=== PATIENT | female | born 1960 | race American Indian/Alaskan Native ===

== ENCOUNTER 2017-02-13 01:01 | Emergency (ER) | payer MEDICAID ==
[2017-02-13 01:57] LABS: Hematocrit 40.1 % (30.3-42.9); Hemoglobin 13.3 gm/dl (10.1-14.3); Mean Corpuscular HGB Conc 33 % (30-34); Mean Corpuscular Hemoglobin 30 pg (28-32); Mean Corpuscular Volume 91 fl (79-97); Platelet Count 142 K/mm3 (140-440); Red Blood Count 4.39 M/mm3 (3.65-5.03)
[2017-02-13 02:13] LABS: Anion Gap 14 mmol/L; BUN/Creatinine Ratio 11.25; Blood Urea Nitrogen 9 mg/dL (7-17); Calcium 9.1 mg/dL (8.4-10.2); Carbon Dioxide 26 mmol/L (22-30); Glucose 122 mg/dL (65-100); Potassium 4.1 mmol/L (3.6-5.0); Sodium 135 mmol/L (137-145)
[2017-02-13 02:43] LABS: Anisocytosis RARE; Basophils % (Manual) 0 % (0.0-1.8); Blastocytes % (Manual) 0 %; Diff Status Complete
[2017-02-13] MEDS ORDERED: MOTRIN ONE (02:51)
[2017-02-13] MEDS: MOTRIN PO ONE (03:18)
[2017-02-13 04:04] LABS: Alanine Aminotransferase 58 units/L (7-56); Albumin 4.1 g/dL (3.9-5); Albumin/Globulin Ratio 1.1 %; Alkaline Phosphatase 167 units/L (35-129); Amylase 112 units/L (27-131); Bilirubin,Total 0.2 mg/dL (0.1-1.2); Lipase 41 units/L (13-60); Total Protein 7.8 g/dL (6.3-8.2)
[2017-02-13 04:06] LABS: Bilirubin,Direct < 0.2 mg/dL (0-0.2)
[2017-02-13 05:09] LABS: Bilirubin,Urine NEG (Negative); Blood,Urine SM (Negative); Ketones,Urine NEG (Negative); Leukocyte Esterase,Urine TR (Negative); Mucus,Urine FEW /HPF; Nitrite,Urine NEG (Negative); Protein,Urine <15 mg/dL mg/dL (Negative); Urobilinogen,Urine < 2.0 mg/dL (<2.0)
--- NOTE | 2017-02-13 07:11 | Emergency Department Report ---
Chief Complaint: Pain General Stated Complaint: BODY ACHE/FEVER Time Seen by Provider: 02/13/17 04:12 - HPI History of Present Illness: 56-year-old female past medical history breast cancer since with complaint of slightly productive cough, fever, chills, body aches for several days. Patient is nonsmoker, denies any chest pain no palpitations, slight shortness of breath due to cough. - Exam Vital Signs: Vital Signs 02/13/17 02/13/17 01:10 06:26 Temperature 101.9 F H 98.3 F Pulse Rate 93 H 77 Respiratory 16 18 Rate Blood Pressure 139/75 129/76 [Right] O2 Sat by Pulse 99 98 Oximetry Physical Exam: Heart S1-S2 lungs clear to auscultation, patient is warm to palpation MSE screening note: Focused history and physical exam performed. Due to findings the following was ordered: Screening Assessment/Plan/Differential Dx: Fever, body aches, viral syndrome? 1- This initial assessment/diagnostic orders/clinical plan/ treatment(s) is/are subject to change based on pt's health status, clinical progression and re- assessment by fellow clinical providers in the ED. Further treatment and workup at subsequent clinical provers discretion. Patient/guardians urged not to elope from ED as their condition may be serious if not clinically assessed and managed. 2- 3- 4- ED Medical Decision Making - Lab Data Result diagrams: 02/13/17 01:37 02/13/17 01:37 ED Disposition for MSE Condition: Stable Referrals: PRIMARY CARE, [Primary Care Provider] - 3-5 Days
--- NOTE | 2017-02-13 07:24 | XRay Report ---
ROUTINE CHEST, TWO VIEWS: HISTORY: Cough, breast cancer. A right [id number]-[id number] has been inserted since 10/08/14. Surgical clips overlie the superior left breast. Heart size and pulmonary vessels are normal. No evidence for infiltrate, pleural effusion or pneumothorax. IMPRESSION: No acute cardiopulmonary process appreciated.
--- NOTE | 2017-02-13 07:38 | Emergency Department Report ---
HPI - General Chief Complaint: Pain General Time Seen by Provider: 02/13/17 04:12 - HPI HPI: Chief complaint: Body aches and coughing HPI: Patient complains of 2 day history of productive cough with yellow sputum, fever, wheezing. Patient states she did not take her flu vaccine. Patient states her highest it was 102.9. Patient states she had 2 episodes of vomiting. Patient has history of breast cancer status post chemotherapy. Last chemotherapy was 1 year ago. Patient is being followed closely for possible recurrence. Patient with a history of asthma and has been using her nebulizer treatment for occasional wheezing. Patient is currently not wheezing Mode of arrival: [private car] Source: [Patient] Began:2 days Duration: 2 days Context: See above Quality: Body aches Severity: 4 out of 10 Improved with: Motrin improves fever and aching Worsened with: Nothing Associated signs and symptoms: Vomiting secondary to coughing ED Past Medical Hx - Past Medical History Previous Medical History?: Yes Hx Hypertension: Yes Hx Asthma: Yes Additional medical history: "breast cancer" - Surgical History Past Surgical History?: Yes Additional Surgical History: partial mastectomy, c-sections, total mastectomy left. - Social History Smoking Status: Never Smoker Substance Use Type: None - Medications Home Medications: Home Medications Medication Instructions Recorded Confirmed Last Taken Type Atenolol [Tenormin] 50 mg PO DAILY 30 Days 10/09/14 08/01/15 07/31/15 Rx 50 mg amLODIPine [Norvasc] 10 mg PO DAILY #30 tab 10/09/14 08/01/15 07/31/15 Rx 10 mg HYDROcodone/APAP 5-325 [[place] 1 each PO Q6HR PRN #12 tablet 12/29/14 08/01/15 Rx 5-325 mg TAB] HYDROcodone/APAP 7.5-325 [[place] 1 each PO Q8HR PRN #15 tablet 07/03/15 08/01/15 Unknown Rx 7.5/325] Dexamethasone [Decadron] 4 mg PO QWEEK 08/01/15 08/01/15 07/11/15 History Ibuprofen [Motrin 600 MG tab] 600 mg PO BID 08/01/15 08/01/15 07/29/15 History Omeprazole Magnesium [PriLOSEC Otc] 20.6 mg PO DAILY 08/01/15 08/01/15 07/31/15 History traMADol [Ultram 50 MG tab] 50 mg PO Q6HR PRN 08/01/15 08/01/15 07/29/15 History Azithromycin [Zithromax TAB] 500 mg PO QDAY #3 tablet 02/13/17 Unknown Rx Benzonatate [Tessalon Perles] 100 mg PO Q8HR #14 capsule 02/13/17 Unknown Rx ED Review of Systems ROS: Stated complaint: BODY ACHE/FEVER Other details as noted in HPI ROS Constitutional: fever ENT: No uri symptoms Cardiovascular: No chest pain Respiratory: No sob GI: No diarrhea : No dysuria frequency or urgency, Skin: No rash Neuro: No focal weakness or numbness Psych: No depression Hussein/lymph: No edema Physical Exam - Physical Exam Vital Signs: Vital Signs 02/13/17 02/13/17 01:10 06:26 Temperature 101.9 F H 98.3 F Pulse Rate 93 H 77 Respiratory 16 18 Rate Blood Pressure 139/75 129/76 [Right] O2 Sat by Pulse 99 98 Oximetry Physical Exam: GENERAL: The patient is well-developed well-nourished . HEENT: Normocephalic. Atraumatic. Extraocular motions are intact. Patient has moist mucous membranes. TMs negative, pharynx slightly erythematous without swelling or exudate. NECK: Supple. No meningitic signs are noted. There is no adenopathy noted. CHEST/LUNGS: Clear to auscultation. There is no respiratory distress noted. HEART/CARDIOVASCULAR: Regular. There is no tachycardia. There is no gallop rub or murmur. ABDOMEN: Abdomen is soft, nontender. Patient has normal bowel sounds. There is no abdominal distention. SKIN: There is no rash. There is no edema. There is no diaphoresis. NEURO: The patient is awake, alert, and oriented. The patient is cooperative. The patient has no focal neurologic deficits. The patient has normal speech. MUSCULOSKELETAL: There is no tenderness or deformity. There is no limitation range of motion. There is no evidence of acute injury. ED Course Vital Signs 02/13/17 02/13/17 01:10 06:26 Temperature 101.9 F H 98.3 F Pulse Rate 93 H 77 Respiratory 16 18 Rate Blood Pressure 139/75 129/76 [Right] O2 Sat by Pulse 99 98 Oximetry - Reevaluation(s) Reevaluation #1: 02/13/17 Patient given Motrin prior to my evaluation with improvement of her fever. ED Medical Decision Making - Lab Data Result diagrams: 02/13/17 01:37 02/13/17 01:37 Laboratory Tests 02/13/17 01:37 AST 90 H ALT 58 H Alkaline Phosphatase 167 H - Radiology Data interpreted by me: Chest x-ray shows no acute process. Critical care attestation.: If time is entered above; I have spent that time in minutes in the direct care of this critically ill patient, excluding procedure time. ED Disposition Clinical Impression: Acute bronchitis Qualifiers: Bronchitis organism: unspecified organism Qualified Code(s): J20.9 - Acute bronchitis, unspecified Disposition: DISCHARGED TO HOME OR SELFCARE Is pt being admited?: No Does the pt Need Aspirin: No Condition: Stable Instructions: Acute Bronchitis (ED) Prescriptions: Azithromycin [Zithromax TAB] 500 mg PO QDAY #3 tablet Benzonatate [Tessalon Perles] 100 mg PO Q8HR #14 capsule Referrals: PRIMARY CARE, [Primary Care Provider] - 3-5 Days CELI BAZAN MD [Staff Physician] - 3-5 Days RITU BE MD [Staff Physician] - 3-5 Days Time of Disposition: 07:37
[2017-02-13 07:49] VITALS: BP 108/61
== END 2017-02-13 07:50 | disposition home or self-care (01) ==
LOC: ED 01:01
DX: J20.9 Acute bronchitis, unspecified (principal); I10 Essential (primary) hypertension; J45.909 Unspecified asthma, uncomplicated
CPT/HCPCS: 36415; 71020; 80048; 80074; 81001; 82150; 83690; 85007; 85025; 87086; 87116; 87400; 87430; 99284

== ENCOUNTER 2017-09-09 07:31 | Outpatient (CLI) | payer MEDICAID ==
--- NOTE | 2017-09-09 09:24 | Mammography Report ---
Right mammogram: Right breast cancer and left mastectomy for cancer. Routine views of the right breast are compared to comparable study in January 2015. There is scar or traction from prior lumpectomy. The findings otherwise appear generally unremarkable and unchanged from prior exam. CAD used. Impression: Stable right breast pattern. No evidence of recurrent malignancy. Recommendation: Annual mammogram followup. BI-RADS CATEGORY: 2 = Benign ACR BI-RADS MAMMOGRAPHIC CODES: 0 = Needs additional imaging evaluation; 1 = Negative; 2 = Benign; 3 = Probably benign; 4 = Suspicious; 5 = Malignant; 6 = Known biopsy-proven malignancy COMMENT: 1. Dense breast tissue, i.e., adenosis, fibrocystic changes, etc., may obscure an underlying neoplasm. 2. Approximately 10% of cancers are not detected with mammography. 3. A negative mammography report should not delay biopsy if a clinically suspicious mass is present.
== END 2017-09-09 07:32 | disposition home or self-care (01) ==
LOC: MAMMO 07:31
PROVIDERS: ATTEND Internal Medicine
DX: Z12.31 Encounter for screening mammogram for malignant neoplasm of breast (principal); C50.912 Malignant neoplasm of unspecified site of left female breast; Z90.12 Acquired absence of left breast and nipple
CPT/HCPCS: G0202-52

== ENCOUNTER 2017-11-14 16:27 | Emergency (ER) | payer MEDICARE, MEDICAID ==
--- NOTE | 2017-11-14 19:04 | Emergency Department Report ---
Chief Complaint: Upper Respiratory Infection Stated Complaint: SOB Time Seen by Provider: 11/14/17 18:49 - HPI History of Present Illness: Patient is a 57-year-old [place] female with past medical history of breast cancer who is undergone chemotherapy and radiation and only sees her oncologist every 3 months, this presenting with cough cold congestion symptoms for the last 3-4 days. Patient states that she does have asthma she has had a wheeze. Patient has had a cough productive of yellow sputum. Patient does not think she 's had a fever. Patient states she is been coughing so much that she has vomited several times. Patient is denying any body aches back pain diarrhea or sore throat at this time. - ROS Review of Systems: Review of systems is negative except those IN HPI - Exam Vital Signs: Vital Signs 11/14/17 16:37 Temperature 98.6 F Pulse Rate 104 H Respiratory 18 Rate Blood Pressure 144/76 O2 Sat by Pulse 100 Oximetry Physical Exam: Focused physical exam shows a patient does have mild wheezing in all quadrants patient has normal heart tones abdomen is soft nontender extremities are normal patient is a and O 3 MSE screening note: Focused history and physical exam performed. Due to findings the following was ordered: Patient will be moved to our treatment area for albuterol Atrovent treatments as well as steroids IV fluids and will check basic labs ED Disposition for MSE Condition: Stable Referrals: EMELY PLEITEZ MD [Primary Care Provider] - 3-5 Days
[2017-11-14] MEDS ORDERED: DUONEB *Not for PRN Use IH ONE (19:08)
[2017-11-14] MEDS ORDERED: NACL 0.9% 1000 ML 1,000 ML IV ONE (19:08)
[2017-11-14] MEDS ORDERED: PROVENTIL IH ONE (19:08)
[2017-11-14 19:45] LABS: BUN/Creatinine Ratio 10; Basophils % (Auto) 0.4 % (0.0-1.8); Blood Urea Nitrogen 9 mg/dL (7-17); Calcium 9.1 mg/dL (8.4-10.2); Eosinophils # (Auto) 0.2 K/mm3 (0.0-0.4); Eosinophils % (Auto) 2.7 % (0.0-4.3); Hemoglobin 12.6 gm/dl (10.1-14.3); Hemolysis Index 1; Lymphocytes # (Auto) 1.6 K/mm3 (1.2-5.4); Lymphocytes % (Auto) 18.3 % (13.4-35.0); Mean Corpuscular HGB Conc 32 % (30-34); Mean Corpuscular Hemoglobin 30 pg (28-32); Mean Corpuscular Volume 91 fl (79-97); Monocytes % (Auto) 11.3 % (0.0-7.3); Platelet Count 190 K/mm3 (140-440); Red Blood Count 4.27 M/mm3 (3.65-5.03); Red Cell Distribution Width 13.9 % (13.2-15.2)
--- NOTE | 2017-11-14 19:46 | XRay Report ---
FINAL REPORT EXAM: XR CHEST 1V AP HISTORY: [facility] Respiratory Infection TECHNIQUE: upright single view chest PRIORS: None. FINDINGS: Cardiac and mediastinal contours are unremarkable. No focal pulmonary infiltrate is identified. No pleural fluid collection seen. Pulmonary vasculature is unremarkable. There is right-sided chest port with catheter tip at the SVC. Surgical clips are noted at the left hilum IMPRESSION: Chest port No acute abnormality identified in the chest
--- NOTE | 2017-11-14 21:12 | Emergency Department Report ---
- General Chief Complaint: Upper Respiratory Infection Stated Complaint: SOB Time Seen by Provider: 11/14/17 18:49 Source: patient Mode of arrival: Ambulatory Limitations: No Limitations - History of Present Illness Initial Comments: This is a 57-year-old female nontoxic, well nourished in appearance, no acute signs of distress presents to the ED with c/o of nasal congestion, productive cough 3-4 days. Patient has been screened by Dr. Arambula. See Dr. Arambula MSE notes for HPI. Dr. Leos obtained labs. As per patient, no changes in HPI. Patient denies any recent travels, long car rides, recent hospital stays. Patient denies hemoptysis, calf pain, calf tenderness, chest pain, shortness of breath, difficulty breathing, headache, stiff neck, numbness, tingling, abdominal pain, nausea or vomiting. MD Complaint: cough, rhinorrhea, nasal congestion -: days(s) (3) Severity: mild Consistency: constant Improves With: nothing Worsens With: nothing Associated Symptoms: rhinorrhea, nasal congestion, cough. denies: fever, chills , myalgias, diaphoresis, headache, sore throat, stiff neck, chest pain, shortness of breath, abdominal pain, nausea, vomiting, diarrhea, dysuria, rash, confusion, right sweats, weight loss, epistaxis, hoarseness, ear pain Treatments Prior to Arrival: none - Related Data Home Medications Medication Instructions Recorded Confirmed Last Taken Dexamethasone [Decadron] 4 mg PO QWEEK 08/01/15 08/01/15 07/11/15 Ibuprofen [Motrin 600 MG tab] 600 mg PO BID 08/01/15 08/01/15 07/29/15 Omeprazole Magnesium [PriLOSEC Otc] 20.6 mg PO DAILY 08/01/15 08/01/15 07/31/15 traMADol [Ultram 50 MG tab] 50 mg PO Q6HR PRN 08/01/15 08/01/15 07/29/15 Previous Rx's Medication Instructions Recorded Last Taken Type Atenolol [Tenormin] 50 mg PO DAILY 30 Days tab 10/09/14 07/31/15 Rx 50 mg amLODIPine [Norvasc] 10 mg PO DAILY #30 tab 10/09/14 07/31/15 Rx 10 mg HYDROcodone/APAP 5-325 [[place] 1 each PO Q6HR PRN #12 tablet 12/29/14 07/25/15 Rx 5-325 mg TAB] HYDROcodone/APAP 7.5-325 [[place] 1 each PO Q8HR PRN #15 tablet 07/03/15 Unknown Rx 7.5/325] Azithromycin [Zithromax TAB] 500 mg PO QDAY #3 tablet 02/13/17 Unknown Rx Benzonatate [Tessalon Perles] 100 mg PO Q8HR #14 capsule 02/13/17 Unknown Rx ALBUTEROL Inhaler [ProAir HFA 2 puff IH QID PRN #1 inhalation 11/14/17 Unknown Rx Inhaler] Benzonatate [Tessalon Perle] 100 mg PO Q8H #30 capsule 11/14/17 Unknown Rx Levofloxacin [Levaquin TAB] 750 mg PO QDAY #5 tablet 11/14/17 Unknown Rx predniSONE [Deltasone] 40 mg PO QDAY #5 tab 11/14/17 Unknown Rx Allergies Allergy/AdvReac Type Severity Reaction Status Date / Time No Known Allergies Allergy Verified 10/09/14 00:39 ED Review of Systems ROS: Stated complaint: SOB Other details as noted in HPI Constitutional: denies: chills, fever Eyes: denies: eye pain, eye discharge, vision change ENT: denies: ear pain, throat pain Respiratory: cough. denies: shortness of breath, wheezing Cardiovascular: denies: chest pain, palpitations Endocrine: no symptoms reported Gastrointestinal: denies: abdominal pain, nausea, diarrhea Genitourinary: denies: urgency, dysuria, discharge Musculoskeletal: denies: back pain, joint swelling, arthralgia Skin: denies: rash, lesions Neurological: denies: headache, weakness, paresthesias Psychiatric: denies: anxiety, depression Hematological/Lymphatic: denies: easy bleeding, easy bruising ED Past Medical Hx - Past Medical History Hx Hypertension: Yes Hx Asthma: Yes Additional medical history: "breast cancer" - Surgical History Additional Surgical History: partial mastectomy, c-sections, total mastectomy left. - Social History Smoking Status: Never Smoker Substance Use Type: None - Medications Home Medications: Home Medications Medication Instructions Recorded Confirmed Last Taken Type Atenolol [Tenormin] 50 mg PO DAILY 30 Days tab 10/09/14 08/01/15 07/31/15 Rx 50 mg amLODIPine [Norvasc] 10 mg PO DAILY #30 tab 10/09/14 08/01/15 07/31/15 Rx 10 mg HYDROcodone/APAP 5-325 [[place] 1 each PO Q6HR PRN #12 tablet 12/29/14 08/01/15 Rx 5-325 mg TAB] HYDROcodone/APAP 7.5-325 [[place] 1 each PO Q8HR PRN #15 tablet 07/03/15 08/01/15 Unknown Rx 7.5/325] Dexamethasone [Decadron] 4 mg PO QWEEK 08/01/15 08/01/15 07/11/15 History Ibuprofen [Motrin 600 MG tab] 600 mg PO BID 08/01/15 08/01/15 07/29/15 History Omeprazole Magnesium [PriLOSEC Otc] 20.6 mg PO DAILY 08/01/15 08/01/15 07/31/15 History traMADol [Ultram 50 MG tab] 50 mg PO Q6HR PRN 08/01/15 08/01/15 07/29/15 History Azithromycin [Zithromax TAB] 500 mg PO QDAY #3 tablet 02/13/17 Unknown Rx Benzonatate [Tessalon Perles] 100 mg PO Q8HR #14 capsule 02/13/17 Unknown Rx ALBUTEROL Inhaler [ProAir HFA 2 puff IH QID PRN #1 inhalation 11/14/17 Unknown Rx Inhaler] Benzonatate [Tessalon Perle] 100 mg PO Q8H #30 capsule 11/14/17 Unknown Rx Levofloxacin [Levaquin TAB] 750 mg PO QDAY #5 tablet 11/14/17 Unknown Rx predniSONE [Deltasone] 40 mg PO QDAY #5 tab 11/14/17 Unknown Rx ED Physical Exam - General Limitations: No Limitations General appearance: alert, in no apparent distress - Head Head exam: Present: atraumatic, normocephalic, normal inspection - Eye Eye exam: Present: normal appearance, PERRL, EOMI. Absent: scleral icterus, conjunctival injection, nystagmus, periorbital swelling, periorbital tenderness Pupils: Present: normal accommodation - ENT ENT exam: Present: normal exam, normal orophraynx, mucous membranes moist, TM's normal bilaterally, normal external ear exam - Neck Neck exam: Present: normal inspection, full ROM. Absent: tenderness, meningismus, lymphadenopathy, thyromegaly - Respiratory Respiratory exam: Present: normal lung sounds bilaterally. Absent: respiratory distress, wheezes, rales, rhonchi, stridor, chest wall tenderness, accessory muscle use, decreased breath sounds, prolonged expiratory - Cardiovascular Cardiovascular Exam: Present: regular rate, normal rhythm, normal heart sounds. Absent: irregular rhythm, systolic murmur, diastolic murmur, rubs, gallop - GI/Abdominal GI/Abdominal exam: Present: soft, normal bowel sounds. Absent: distended, tenderness, guarding, rebound, rigid, diminished bowel sounds - Rectal Rectal exam: Present: deferred - Extremities Exam Extremities exam: Present: normal inspection, full ROM, normal capillary refill. Absent: tenderness, pedal edema, joint swelling, calf tenderness - Back Exam Back exam: Present: normal inspection, full ROM. Absent: tenderness, CVA tenderness (R), CVA tenderness (L), muscle spasm, paraspinal tenderness, vertebral tenderness, rash noted - Neurological Exam Neurological exam: Present: alert, oriented X3, CN II-XII intact, normal gait, reflexes normal - Psychiatric Psychiatric exam: Present: normal affect, normal mood - Skin Skin exam: Present: warm, dry, intact, normal color. Absent: rash ED Course Vital Signs 11/14/17 16:37 Temperature 98.6 F Pulse Rate 104 H Respiratory 18 Rate Blood Pressure 144/76 O2 Sat by Pulse 100 Oximetry - Reevaluation(s) Reevaluation #1: 11/14/17 21:10 Patient is speaking in full sentences with no signs of distress noted. Reevaluation #2: 11/14/17 21:10 patient stated she feels much better after medical treatment and ED included wheezing and other symptoms subsided. - Consultations Consultation #1: 11/14/17 21:11 Patient has been consulted with Dr. Arambula about patient history, physical exam , and labs and examined and screened and agrees distress plan for care. ED Medical Decision Making - Lab Data Result diagrams: 11/14/17 19:15 11/14/17 19:15 - Medical Decision Making This is a 57-yaer-old female that presents with upper resp infection. Patient is stable and was examined by me and Dr. Arambula. Patient is screened by Dr. Arambula. See HPI MSE Dr. Leos noted. As per patient, no physcial changes or HPI changes. Chest x-ray and strep within normal limits and compared by radiologist. Patient notified of x-ray results. Patient received DuoNeb, 1 L normal saline, and Solu-Medrol with patient's symptoms had improved and has subsided. Patient denies history of PE or DVt. Wells criteria 0 points: unlikely PE. Patient was instructed to return in 48 hours to the emergency room for reevaulation of the medical treatment. Due to patient history, patient received Levo, albuterol, tessoln perrls, and prednisone at d.c. Patient was also instructed to Follow-up with a primary care doctor in 24 hours or if symptoms worsen and continue return to emergency room as soon as possible. At time time of discharge, the patient does not seem toxic or ill in appearance. No acute signs of distress noted. Patient agrees to discharge treatment plan of care. No further questions noted by the patient. Critical care attestation.: If time is entered above; I have spent that time in minutes in the direct care of this critically ill patient, excluding procedure time. ED Disposition Clinical Impression: Upper respiratory infection Qualifiers: URI type: unspecified URI Qualified Code(s): J06.9 - Acute upper respiratory infection, unspecified Asthma exacerbation Qualifiers: Asthma severity: mild Asthma persistence: unspecified Qualified Code(s): J45.901 - Unspecified asthma with (acute) exacerbation Disposition: DC-01 TO HOME OR SELFCARE Is pt being admited?: No Does the pt Need Aspirin: No Condition: Stable Instructions: Asthma (ED), Upper Respiratory Infection (ED) Additional Instructions: Follow-up with a primary care doctor in 24 hours or if symptoms worsen and continue return to emergency room as soon as possible. Return to the emergency room in 48 hours for reevaluation. Prescriptions: ALBUTEROL Inhaler [ProAir HFA Inhaler] 2 puff IH QID PRN #1 inhalation PRN Reason: Shortness Of Breath Benzonatate [Tessalon Perle] 100 mg PO Q8H #30 capsule Levofloxacin [Levaquin TAB] 750 mg PO QDAY #5 tablet predniSONE [Deltasone] 40 mg PO QDAY #5 tab Referrals: EMELY PLEITEZ MD [Primary Care Provider] - 3-5 Days CHRISS CORREA MD [Staff Physician] - 3-5 Days [facility] [Outside] - 3-5 Days [facility] [Outside] - 3-5 Days Forms: Work/School Release Form(ED)
[2017-11-14] MEDS ORDERED: TESSALON PERLES PO ONE (21:14)
[2017-11-14 21:31] VITALS: BP 151/82
== END 2017-11-14 21:30 | disposition home or self-care (01) ==
LOC: ED 16:27
DX: J45.901 Unspecified asthma with (acute) exacerbation (principal); J06.9 Acute upper respiratory infection, unspecified; I10 Essential (primary) hypertension
CPT/HCPCS: 36415; 71010; 80048; 85025; 94640; 96374; 99284; J2930; J7030

== ENCOUNTER 2017-12-26 13:51 | Emergency (ER) | payer MEDICAID ==
[2017-12-26 14:38] VITALS: BP 126/70
== END 2017-12-26 14:45 | disposition other institution (70) ==
LOC: ED 13:51
DX: Z53.21 Procedure and treatment not carried out due to patient leaving prior to being seen by health care provider (principal)

== ENCOUNTER 2018-01-30 15:31 | Outpatient (CLI) | payer MEDICAID ==
[2018-01-30 16:13] LABS: Blood Urea Nitrogen 9 mg/dL (7-17)
== END 2018-01-30 15:32 | disposition home or self-care (01) ==
LOC: MRI 15:31
PROVIDERS: ATTEND Internal Medicine Hematology & Oncology
DX: M54.6 Pain in thoracic spine (principal); C50.412 Malignant neoplasm of upper-outer quadrant of left female breast; I10 Essential (primary) hypertension
CPT/HCPCS: 36415; 82565; 84520

== ENCOUNTER 2018-02-09 19:11 | Emergency (ER) | payer MEDICAID, MEDICARE ==
[2018-02-09 19:33] VITALS: BP 119/61
--- NOTE | 2018-02-09 20:20 | Emergency Department Report ---
ED Rash HPI - HPI Chief Complaint: Skin Rash Stated Complaint: RASH ON CHEST,BACK Time Seen by Provider: 02/09/18 20:13 Duration: 3 Days Location: Chest, Back Suspected Cause: Other Rash Symptoms: Yes Itching, No Facial Swelling, No Tongue/Oral Swelling, No Breathing Difficulties, No Choking Sensation, No Wheezing/Dyspnea, No Peeling, No Blistering, No Fever, No Lightheaded, No Malaise, No Myalgias Severity: moderate ED Review of Systems ROS: Stated complaint: RASH ON CHEST,BACK Other details as noted in HPI Constitutional: denies: chills, fever Eyes: denies: eye pain, eye discharge, vision change ENT: denies: ear pain, throat pain Respiratory: denies: cough, shortness of breath, wheezing Cardiovascular: denies: chest pain, palpitations Endocrine: no symptoms reported Gastrointestinal: denies: abdominal pain, nausea, diarrhea Genitourinary: denies: urgency, dysuria, discharge Musculoskeletal: denies: back pain, joint swelling, arthralgia Skin: rash, pruritus Neurological: denies: headache, weakness, paresthesias Psychiatric: denies: anxiety, depression Hematological/Lymphatic: denies: easy bleeding, easy bruising ED Past Medical Hx - Past Medical History Hx Hypertension: Yes Hx of Cancer: Yes (breast) Hx Asthma: Yes Additional medical history: "breast cancer" - Surgical History Additional Surgical History: partial mastectomy, c-sections, total mastectomy left. - Social History Smoking Status: Never Smoker Substance Use Type: Alcohol, Non Opiate Pain, Prescribed - Medications Home Medications: Home Medications Medication Instructions Recorded Confirmed Last Taken Type Atenolol [Tenormin] 50 mg PO DAILY 30 Days tab 10/09/14 08/01/15 07/31/15 Rx 50 mg amLODIPine [Norvasc] 10 mg PO DAILY #30 tab 10/09/14 08/01/15 07/31/15 Rx 10 mg HYDROcodone/APAP 5-325 [[place] 1 each PO Q6HR PRN #12 tablet 12/29/14 08/01/15 Rx 5-325 mg TAB] HYDROcodone/APAP 7.5-325 [[place] 1 each PO Q8HR PRN #15 tablet 07/03/15 08/01/15 Unknown Rx 7.5/325] Dexamethasone [Decadron] 4 mg PO QWEEK 08/01/15 08/01/15 07/11/15 History Ibuprofen [Motrin 600 MG tab] 600 mg PO BID 08/01/15 08/01/15 07/29/15 History Omeprazole Magnesium [PriLOSEC Otc] 20.6 mg PO DAILY 08/01/15 08/01/15 07/31/15 History traMADol [Ultram 50 MG tab] 50 mg PO Q6HR PRN 08/01/15 08/01/15 07/29/15 History Azithromycin [Zithromax TAB] 500 mg PO QDAY #3 tablet 02/13/17 Unknown Rx Benzonatate [Tessalon Perles] 100 mg PO Q8HR #14 capsule 02/13/17 Unknown Rx ALBUTEROL Inhaler [ProAir HFA 2 puff IH QID PRN #1 inhalation 11/14/17 Unknown Rx Inhaler] Benzonatate [Tessalon Perle] 100 mg PO Q8H #30 capsule 11/14/17 Unknown Rx Levofloxacin [Levaquin TAB] 750 mg PO QDAY #5 tablet 11/14/17 Unknown Rx predniSONE [Deltasone] 40 mg PO QDAY #5 tab 11/14/17 Unknown Rx Metoclopramide [Reglan] 10 mg PO TID PRN #30 tab 02/09/18 Unknown Rx Triamcinolone 0.1% [Kenalog 0.1% 1 applic TP TID #1 tube 02/09/18 Unknown Rx OINT] diphenhydrAMINE [Benadryl CAP] 25 mg PO Q6HR PRN #30 capsule 02/09/18 Unknown Rx predniSONE [Deltasone] 40 mg PO QDAY #10 tab 02/09/18 Unknown Rx Rash Exam - Exam General: Vital signs noted. No distress. Alert and acting appropriately. HEENT: No Periorbital Edema, No Conjuctival Injection, No Chemosis, No Perioral Edema, No Tongue Edema, No Uvular Edema, No Compromised Airway, No Drooling Lungs: Yes Good Air Exchange, No Wheezes, No Ronchi, No Stridor, No Cough, No Labored Respirations, No Retractions, No Use of Accessory Muscles, No Other Abnormal Lung Sounds Heart: Yes Regular, No Murmur Skin: Yes Urticarial Rash, Yes Maculopapular Rash, Yes Erythema, No Morbilliform rash, No Bulla(e), No Excoriations, No Weeping, No Tenderness, No Edema, No Encrustations, No Other Other: Positive: Abdomen Normal, Neurologic Normal, Musculoskeletal Normal ED Course Vital Signs 02/09/18 19:29 Temperature 98.6 F Pulse Rate 74 Respiratory 18 Rate Blood Pressure 119/61 [Left] O2 Sat by Pulse 98 Oximetry ED Medical Decision Making - Medical Decision Making pt presents for contact dermatitis rash to back and chest wall macropapular erythema raised smooth pruritis plan, benadry, prednisone, triamcinolone oint follow up with pcp in 2-3 days pt verbalized agreement and understanding of same. Critical care attestation.: If time is entered above; I have spent that time in minutes in the direct care of this critically ill patient, excluding procedure time. ED Disposition Clinical Impression: Contact dermatitis Qualifiers: Contact dermatitis type: unspecified Contact dermatitis trigger: unspecified trigger Qualified Code(s): L25.9 - Unspecified contact dermatitis, unspecified cause Disposition: TO HOME OR SELFCARE Is pt being admited?: No Does the pt Need Aspirin: No Condition: Good Instructions: Contact Dermatitis (ED) Prescriptions: diphenhydrAMINE [Benadryl CAP] 25 mg PO Q6HR PRN #30 capsule PRN Reason: Itching Metoclopramide [Reglan] 10 mg PO TID PRN #30 tab PRN Reason: allergy symptoms predniSONE [Deltasone] 40 mg PO QDAY #10 tab Triamcinolone 0.1% [Kenalog 0.1% OINT] 1 applic TP TID #1 tube Referrals: TALON VILLATORO MD [Referring] - 3-5 Days Forms: Work/School Release Form(ED) Time of Disposition: 20:20
== END 2018-02-09 20:25 | disposition home or self-care (01) ==
LOC: ED 19:11
DX: L25.9 Unspecified contact dermatitis, unspecified cause (principal); I10 Essential (primary) hypertension
CPT/HCPCS: 99282

== ENCOUNTER 2018-04-22 21:00 | Emergency (ER) | payer MEDICARE ==
[2018-04-22 22:45] VITALS: BP 139/82
[2018-04-22 23:47] LABS: Basophils % (Auto) 0.4 % (0.0-1.8); Eosinophils # (Auto) 0.5 K/mm3 (0.0-0.4); Hematocrit 38.9 % (30.3-42.9); Hemoglobin 12.7 gm/dl (10.1-14.3); Lymphocytes # (Auto) 2.2 K/mm3 (1.2-5.4); Lymphocytes % (Auto) 37.5 % (13.4-35.0); Mean Corpuscular HGB Conc 33 % (30-34); Mean Corpuscular Hemoglobin 30 pg (28-32); Mean Corpuscular Volume 91 fl (79-97); Monocytes # (Auto) 0.6 K/mm3 (0.0-0.8); Monocytes % (Auto) 10.8 % (0.0-7.3); Platelet Count 172 K/mm3 (140-440); Red Blood Count 4.29 M/mm3 (3.65-5.03); Red Cell Distribution Width 13.8 % (13.2-15.2)
[2018-04-23 00:10] LABS: BUN/Creatinine Ratio 15; Blood Urea Nitrogen 12 mg/dL (7-17); Calcium 9.3 mg/dL (8.4-10.2); Hemolysis Index 7
== END 2018-04-23 19:03 ==
LOC: ED 21:00
DX: R06.02 Shortness of breath (principal); Z53.21 Procedure and treatment not carried out due to patient leaving prior to being seen by health care provider
CPT/HCPCS: 36415; 80048; 84484; 85025; 93005; 93010

== ENCOUNTER 2018-09-11 10:27 | Outpatient (CLI) | payer MEDICARE ==
--- NOTE | 2018-09-11 11:11 | Mammography Report ---
Right mammogram: Left mastectomy, right breast cancer with radiation. Routine views demonstrates lumpectomy with central retraction and deformity of the right breast. Mild thickening of the medial and inferior scan. There is an intermediate overall fibroglandular density pattern which is otherwise unremarkable. These findings are unchanged compared to prior exam on March 10, 2017. CAD used. Impression: Stable right breast pattern; left mastectomy. Recommendation: Annual mammogram followup. BI-RADS CATEGORY: 2 = Benign ACR BI-RADS MAMMOGRAPHIC CODES: 0 = Needs additional imaging evaluation; 1 = Negative; 2 = Benign; 3 = Probably benign; 4 = Suspicious; 5 = Malignant; 6 = Known biopsy-proven malignancy COMMENT: 1. Dense breast tissue, i.e., adenosis, fibrocystic changes, etc., may obscure an underlying neoplasm. 2. Approximately 10% of cancers are not detected with mammography. 3. A negative mammography report should not delay biopsy if a clinically suspicious mass is present.
== END 2018-09-11 10:28 | disposition home or self-care (01) ==
LOC: MAMMO 10:27
PROVIDERS: ATTEND Internal Medicine Hematology & Oncology
DX: Z12.31 Encounter for screening mammogram for malignant neoplasm of breast (principal); I10 Essential (primary) hypertension; J45.909 Unspecified asthma, uncomplicated

== ENCOUNTER 2020-01-19 09:47 | Emergency (ER) | payer MEDICARE ==
--- NOTE | 2020-01-19 10:47 | XRay Report ---
{null, CHEST 2 VIEWS INDICATION / CLINICAL INFORMATION: SOB. COMPARISON: 11/14/2017 FINDINGS: SUPPORT DEVICES: None. HEART / MEDIASTINUM: No significant abnormality. LUNGS / PLEURA: No significant pulmonary or pleural abnormality. No pneumothorax. ADDITIONAL FINDINGS: No significant additional findings. IMPRESSION: 1. No acute findings. Signer Name: Francisco Javier Patrick MD Signed: 01/19/2020 10:42 AM Workstation Name: [id number] }
[2020-01-19 11:36] LABS: Hematocrit 40.5 % (30.3-42.9); Hemoglobin 13.4 gm/dl (10.1-14.3); Mean Corpuscular HGB Conc 33 % (30-34); Mean Corpuscular Volume 91 fl (79-97); Platelet Count 176 K/mm3 (140-440); Red Blood Count 4.46 M/mm3 (3.65-5.03); Red Cell Distribution Width 14.4 % (13.2-15.2)
[2020-01-19 11:51] LABS: BUN/Creatinine Ratio 14; Blood Urea Nitrogen 11 mg/dL (7-17); Calcium 9.2 mg/dL (8.4-10.2); Hemolysis Index 23
[2020-01-19 12:24] VITALS: BP 162/71
[2020-01-19] MEDS ORDERED: IBUPROFEN 800 MG TAB PO ONE (12:36)
[2020-01-19] MEDS ORDERED: BENZONATATE 100 MG CAP PO ONE (12:36)
--- NOTE | 2020-01-19 12:41 | Emergency Department Report ---
{null, - General Chief Complaint: Upper Respiratory Infection Stated Complaint: CP/SOB Time Seen by Provider: 01/19/20 12:11 Source: patient Mode of arrival: Ambulatory Limitations: No Limitations - History of Present Illness Initial Comments: 59-year-old female the past medical history of hypertension, asthma, breast cancer in remission presents to the hospital complaining of cough productive of yellow mucus, sore throat, generalized moderate body aches x2 days. Patient denies fever. Patient complains of coughing spells worse at night and chest pain associated with coughing episodes. Increased intermittent wheezing and dyspnea exertion reported. Patient did not receive a flu shot. Denies international travel. Possible sick contact at work. - Related Data Home Medications Medication Instructions Recorded Confirmed Last Taken Ibuprofen [Motrin 600 MG tab] 600 mg PO BID 08/01/15 08/01/15 07/29/15 Omeprazole Magnesium [PriLOSEC Otc] 20.6 mg PO DAILY 08/01/15 08/01/15 07/31/15 dexAMETHasone [Decadron] 4 mg PO QWEEK 08/01/15 08/01/15 07/11/15 traMADoL [Ultram 50 MG tab] 50 mg PO Q6HR PRN 08/01/15 08/01/15 07/29/15 Previous Rx's Medication Instructions Recorded Last Taken Type amLODIPine 10 mg PO DAILY #30 tab 10/09/14 07/31/15 Rx 10 mg atenoloL [Tenormin] 50 mg PO DAILY 30 Days tab 10/09/14 07/31/15 Rx 50 mg HYDROcodone/APAP 5-325 [[place] 1 each PO Q6HR PRN #12 tablet 12/29/14 07/25/15 Rx 5-325 mg TAB] HYDROcodone/APAP 7.5-325 [[place] 1 each PO Q8HR PRN #15 tablet 07/03/15 Unknown Rx 7.5/325] Azithromycin [Zithromax TAB] 500 mg PO QDAY #3 tablet 02/13/17 Unknown Rx Albuterol INH(or & Nicu Only) 2 puff IH QID PRN #1 inhalation 11/14/17 Unknown Rx [ProAir HFA Inhaler] Benzonatate [Tessalon Perle] 100 mg PO Q8H #30 capsule 11/14/17 Unknown Rx levoFLOXacin [Levaquin TAB] 750 mg PO QDAY #5 tablet 11/14/17 Unknown Rx Metoclopramide [Reglan] 10 mg PO TID PRN #30 tab 02/09/18 Unknown Rx Triamcinolone 0.1% [Kenalog 0.1% 1 applic TP TID #1 tube 02/09/18 Unknown Rx OINT] diphenhydrAMINE [Benadryl CAP] 25 mg PO Q6HR PRN #30 capsule 02/09/18 Unknown Rx predniSONE [Deltasone] 40 mg PO QDAY #10 tab 02/09/18 Unknown Rx Azithromycin [Zithromax Z-DAPHNIE] 1 dose PO DAILY 5 Days tab 01/19/20 Unknown Rx Benzonatate [Tessalon Perles] 100 mg PO Q8HR PRN #20 capsule 01/19/20 Unknown Rx Ibuprofen [Motrin 800 MG tab] 800 mg PO Q8HR PRN #20 tablet 01/19/20 Unknown Rx guaiFENesin/CODEINE [Robitussin AC] 10 ml PO Q6HR PRN #14 dose 01/19/20 Unknown Rx predniSONE [Deltasone] 40 mg PO QDAY #5 tab 01/19/20 Unknown Rx Allergies Allergy/AdvReac Type Severity Reaction Status Date / Time No Known Allergies Allergy Verified 10/09/14 00:39 ED Review of Systems ROS: Stated complaint: CP/SOB Other details as noted in HPI Comment: All other systems reviewed and negative ED Past Medical Hx - Past Medical History Hx Hypertension: Yes Hx Asthma: Yes Additional medical history: "breast cancer" - Surgical History Additional Surgical History: partial mastectomy, c-sections, total mastectomy left. - Social History Smoking Status: Never Smoker Substance Use Type: None - Medications Home Medications: Home Medications Medication Instructions Recorded Confirmed Last Taken Type amLODIPine 10 mg PO DAILY #30 tab 10/09/14 08/01/15 07/31/15 Rx 10 mg atenoloL [Tenormin] 50 mg PO DAILY 30 Days tab 10/09/14 08/01/15 07/31/15 Rx 50 mg HYDROcodone/APAP 5-325 [[place] 1 each PO Q6HR PRN #12 tablet 12/29/14 08/01/15 07/25/15 Rx 5-325 mg TAB] HYDROcodone/APAP 7.5-325 [[place] 1 each PO Q8HR PRN #15 tablet 07/03/15 08/01/15 Unknown Rx 7.5/325] Ibuprofen [Motrin 600 MG tab] 600 mg PO BID 08/01/15 08/01/15 07/29/15 History Omeprazole Magnesium [PriLOSEC Otc] 20.6 mg PO DAILY 08/01/15 08/01/15 07/31/15 History dexAMETHasone [Decadron] 4 mg PO QWEEK 08/01/15 08/01/15 07/11/15 History traMADoL [Ultram 50 MG tab] 50 mg PO Q6HR PRN 08/01/15 08/01/15 07/29/15 History Azithromycin [Zithromax TAB] 500 mg PO QDAY #3 tablet 02/13/17 Unknown Rx Albuterol INH(or & Nicu Only) 2 puff IH QID PRN #1 inhalation 11/14/17 Unknown Rx [ProAir HFA Inhaler] Benzonatate [Tessalon Perle] 100 mg PO Q8H #30 capsule 11/14/17 Unknown Rx levoFLOXacin [Levaquin TAB] 750 mg PO QDAY #5 tablet 11/14/17 Unknown Rx Metoclopramide [Reglan] 10 mg PO TID PRN #30 tab 02/09/18 Unknown Rx Triamcinolone 0.1% [Kenalog 0.1% 1 applic TP TID #1 tube 02/09/18 Unknown Rx OINT] diphenhydrAMINE [Benadryl CAP] 25 mg PO Q6HR PRN #30 capsule 02/09/18 Unknown Rx predniSONE [Deltasone] 40 mg PO QDAY #10 tab 02/09/18 Unknown Rx Azithromycin [Zithromax Z-DAPHNIE] 1 dose PO DAILY 5 Days tab 01/19/20 Unknown Rx Benzonatate [Tessalon Perles] 100 mg PO Q8HR PRN #20 capsule 01/19/20 Unknown Rx Ibuprofen [Motrin 800 MG tab] 800 mg PO Q8HR PRN #20 tablet 01/19/20 Unknown Rx guaiFENesin/CODEINE [Robitussin AC] 10 ml PO Q6HR PRN #14 dose 01/19/20 Unknown Rx predniSONE [Deltasone] 40 mg PO QDAY #5 tab 01/19/20 Unknown Rx ED Physical Exam - General Limitations: No Limitations - Other Other exam information: General: No acute distress Head: Atraumatic Eyes: normal appearance ENT: Moist mucous membranes, no pharyngeal edema or exudate, no cervical lymphadenopathy Neck: Normal appearance, no midline tenderness, no nuchal rigidity Chest: Clear to auscultation bilaterally, no tachypnea or accessory muscle use CV: Regular rate and rhythm Abdomen: Soft, normal bowel sounds, nontender, nondistended, no rebound or guarding Back: Normal inspection Extremity: Normal inspection, full range of motion, no calf tenderness or leg edema Neuro: Alert O x 3, no facial asymmetry, speech clear, no gross motor sensory deficit Psych: Appropriate behavior Skin: No rash ED Course Vital Signs 01/19/20 01/19/20 09:59 12:23 Temperature 99.2 F Pulse Rate 104 H 83 Respiratory 20 16 Rate Blood Pressure 174/92 162/71 [Left] O2 Sat by Pulse 100 98 Oximetry ED Medical Decision Making - Lab Data Result diagrams: 01/19/20 10:40 01/19/20 10:40 Lab Results 01/19/20 01/19/20 Range/Units 10:40 10:40 WBC 5.7 (4.5-11.0) K/mm3 RBC 4.46 (3.65-5.03) M/mm3 Hgb 13.4 (10.1-14.3) gm/dl Hct 40.5 (30.3-42.9) % MCV 91 (79-97) fl MCH 30 (28-32) pg MCHC 33 (30-34) % RDW 14.4 (13.2-15.2) % Plt Count 176 (140-440) K/mm3 Sodium 140 (137-145) mmol/L Potassium 4.2 (3.6-5.0) mmol/L Chloride 101.7 (98-107) mmol/L Carbon Dioxide 22 (22-30) mmol/L Anion Gap 21 mmol/L BUN 11 (7-17) mg/dL Creatinine 0.8 (0.7-1.2) mg/dL Estimated GFR > 60 ml/min BUN/Creatinine Ratio 14 % Glucose 107 H (65-100) mg/dL Calcium 9.2 (8.4-10.2) mg/dL - Radiology Data Radiology results: report reviewed CHEST 2 VIEWS INDICATION / CLINICAL INFORMATION: SOB. COMPARISON: 11/14/2017 FINDINGS: SUPPORT DEVICES: None. HEART / MEDIASTINUM: No significant abnormality. LUNGS / PLEURA: No significant pulmonary or pleural abnormality. No pneumothorax. ADDITIONAL FINDINGS: No significant additional findings. IMPRESS ION: 1. No acute findings. - Medical Decision Making Patient likely has a viral syndrome but also reports increased wheezing episodes of shortness of breath suggestive of bronchitis. No signs of hypoxia, respiratory distress, chest x-ray clear and breath sounds clear per auscultation. Patient will be treated for symptoms and cover with Z-Daphnie and with outpatient suggested - Differential Diagnosis Pneumonia, bronchitis, influenza, viral syndrome, pharyngitis Critical Care Time: No Critical care attestation.: If time is entered above; I have spent that time in minutes in the direct care of this critically ill patient, excluding procedure time. ED Disposition Clinical Impression: Viral syndrome, Acute bronchitis Disposition: DC-01 TO HOME OR SELFCARE Is pt being admited?: No Does the pt Need Aspirin: No Condition: Stable Instructions: Acute Bronchitis (ED), Viral Syndrome (ED) Additional Instructions: Take the medication as prescribed. Follow-up with your doctor or doctor/clinic provided. Return if symptoms worsen as indicated by your discharge instructions. Please note that Robitussin-AC contains codeine. This medication combined with tramadol can increase risk drowsiness and decreased respirations. Do not take Robitussin-AC and tramadol together. Prescriptions: predniSONE [Deltasone] 40 mg PO QDAY #5 tab Ibuprofen [Motrin 800 MG tab] 800 mg PO Q8HR PRN #20 tablet PRN Reason: Pain, Moderate (4-6) guaiFENesin/CODEINE [Robitussin AC] 10 ml PO Q6HR PRN #14 dose PRN Reason: Cough Benzonatate [Tessalon Perles] 100 mg PO Q8HR PRN #20 capsule PRN Reason: Cough Azithromycin [Zithromax Z-DAPHNIE] 1 dose PO DAILY 5 Days tab Referrals: PRIMARY CARE,MD [Primary Care Provider] - 2-3 Days Time of Disposition: 12:40 }
== END 2020-01-19 13:16 | disposition home or self-care (01) ==
LOC: ED 09:47
DX: J20.9 Acute bronchitis, unspecified (principal); B34.9 Viral infection, unspecified; J45.909 Unspecified asthma, uncomplicated; I10 Essential (primary) hypertension; Z85.3 Personal history of malignant neoplasm of breast; Z79.899 Other long term (current) drug therapy; Z98.890 Other specified postprocedural states
CPT/HCPCS: 36415; 71046; 80048; 85027; 93005; 93010

== ENCOUNTER 2021-03-17 01:07 | Emergency (ER) | payer MEDICARE ==
[2021-03-17] MEDS ORDERED: ASPIRIN 325 MG TAB PO ONE (01:21)
[2021-03-17 01:38] LABS: Basophils % (Auto) 0.5 % (0.0-1.8); Eosinophils # (Auto) 0.2 K/mm3 (0.0-0.4); Eosinophils % (Auto) 3.5 % (0.0-4.3); Hematocrit 36.2 % (30.3-42.9); Hemoglobin 12.5 gm/dl (10.1-14.3); Lymphocytes # (Auto) 2.6 K/mm3 (1.2-5.4); Lymphocytes % (Auto) 37.4 % (13.4-35.0); Mean Corpuscular HGB Conc 35 % (30-34); Mean Corpuscular Volume 90 fl (79-97); Monocytes # (Auto) 0.8 K/mm3 (0.0-0.8); Monocytes % (Auto) 11.7 % (0.0-7.3); Platelet Count 204 K/mm3 (140-440); Red Blood Count 4.01 M/mm3 (3.65-5.03)
--- NOTE | 2021-03-17 01:53 | XRay Report ---
CHEST PA AND LATERAL VIEWS INDICATION: CHEST PAIN. COMPARISON: 01/19/2020 FINDINGS: Support devices: None. Heart: Within normal limits. Lungs/Pleura: No acute pulmonary or pleural findings. IMPRESSION: 1. No acute findings. Signer Name: Joesf Jauregui MD Signed: 03/17/2021 1:48 AM Workstation Name: [id number]
[2021-03-17 02:02] LABS: Alanine Aminotransferase 19 units/L (7-56); Albumin 4.2 g/dL (3.9-5); BUN/Creatinine Ratio 17; Blood Urea Nitrogen 17 mg/dL (7-17); Calcium 9.2 mg/dL (8.4-10.2); Hemolysis Index 11
--- NOTE | 2021-03-17 17:15 | Electrocardiograph Report ---
[facility] Test Date: 2021-03-17 Test Time: 01:25:10 Pat Name: MELINA EDWARDS Department: Room: Gender: F Resume Writer: ANA : 1960 Requested By: SCOTT OSULLIVAN III Order Number: [id number] Reading MD: Trace Nguyen Measurements Intervals [place] Rate: 79 P: 43 VT: 142 QRS: 56 QRSD: 102 T: 25 QT: 386 QTc: 444 Interpretive Statements Sinus rhythm Left ventricular hypertrophy Borderline inferior Q waves No previous ECG available for comparison Electronically Signed On 03-17-2021 17:15:06 EDT by Trace Nguyen
== END 2021-03-17 01:30 | disposition left against medical advice (07) ==
LOC: ED 01:07
DX: R07.89 Other chest pain (principal); Z53.21 Procedure and treatment not carried out due to patient leaving prior to being seen by health care provider
CPT/HCPCS: 36415; 71046; 80053; 84484; 84703; 85025; 93005